=== PATIENT | male | born 1965 | race Caucasian/White ===

== ENCOUNTER 2018-08-31 07:22 | Emergency (ER) | payer BC, OTHER ==
[~2018-08-31] VITALS: Ht 175.3 cm; Wt 104.3 kg
[~2018-08-31 07:22] MED LIST: CLIN150C14 PO; CLIN300C8 PO; OXYC-323 PO
[2018-08-31 08:22] VITALS: BP 135/60
--- NOTE | 2018-08-31 08:44 | PHYS DOC ---
Past Medical History Past Medical History: Anxiety, Depression, Diabetes-Type II, High Cholesterol, Hypertension, Other Additional Past Medical Histor: neurofibromytosis, scoliosis Past Surgical History: Appendectomy, Other Additional Past Surgical Histo: tracheostomy, L 3rd finger Alcohol Use: None Drug Use: None Adult General Chief Complaint Chief Complaint: LOWER EXT PAIN HPI HPI Patient is a 53 year old male with a history of diabetes type 2, hypertension, high cholesterol, anxiety, currently with a tracheostomy, who presents today complaining of 9 out of 10 right medial knee pain described as sharp that has been going on for the last couple months. Patient states the pain is worse on weight bearing. Patient states the pain is relieved when he puts pressure on the pain area. He states he has been following up with his own doctor, he states they've given him hydrocodone as well as done joint injections with no relief. He is requesting x-rays. Patient denies any trauma. Review of Systems Review of Systems Constitutional: Denies fever or chills [] Musculoskeletal: Reports right knee pain chronic Integument: Denies rash or skin lesions [] Neurologic: Denies headache, focal weakness or sensory changes [] All other systems were reviewed and found to be within normal limits, except as documented in this note. Allergies Allergies Allergies Coded Allergies Type Severity Reaction Last Updated Verified cephalexin Allergy Intermediate "I break out" 06/20/16 Yes sulfamethoxazole Allergy Intermediate "i break out" 06/20/16 Yes trimethoprim Allergy Intermediate "i break out" 06/20/16 Yes Physical Exam Physical Exam Constitutional: Well developed, well nourished, no acute distress, non-toxic appearance. [] Skin: Warm, dry, no erythema, no rash. [] Back: No tenderness, no CVA tenderness. [] Extremities: Right knee with no obvious deformity. No tenderness on exam. Full active as well as passive range of motion to the right knee. +2 right pedal pulse. Cap refill less than 2 seconds the right lower extremity. Neurologic: Alert and oriented X 3, normal motor function, normal sensory function, no focal deficits noted. [] Psychologic: Affect normal, judgement normal, mood normal. [] Current Patient Data Vital Signs Vital Signs Date Time Temp Pulse Resp B/P (MAP) Pulse Ox O2 Delivery O2 Flow Rate FiO2 08/31/18 08:22 98.9 78 14 135/60 (85) 96 Room Air 98.9 EKG EKG [] Radiology/Procedures Radiology/Procedures [] Course & Med Decision Making Course & Med Decision Making Pertinent Labs and Imaging studies reviewed. (See chart for details) This is a 53-year-old male patient presenting to the ED today with chronic right knee pain, no known injury, patient is requesting x-rays. Right knee xrays interpreted by Dr. Echevarria are negative for any acute findings noted for DJD. Ktracs shows patient received 30 days supply of [place] 08/01/2018. Instructed to continue following up with his doctor. D/C with Voltaren cream. Ice and elevation encouraged. Staff Physician Addendum: I was working in the ER during the course of this patient's visit. I was available for consultation as needed, but I was not directly involved in the care of this patient. Dragon Disclaimer Dragon Disclaimer This electronic medical record was generated, in whole or in part, using a voice recognition dictation system. Departure Departure Impression: Primary Impression: Chronic pain of right knee Additional Impression: Right knee DJD Disposition: 01 HOME, SELF-CARE Condition: STABLE Referrals: UNKNOWN PCP NAME (PCP) CHATO LARA II, MD follow up in one week with your doctor or the provided doctor Patient Instructions: Arthritis, Degenerative-Brief, Knee Pain, [id number] Additional Instructions: You were seen for chronic right knee pain. Please continue taking hydrocodone at home. Use the cream provided on your knee as needed for pain. Follow up with your doctor as soon as you can. Scripts Diclofenac Sodium (VOLTAREN) 100 Gm Gel..gram. 1 GM TP QID, #100 GM 2 Refills Prov: TITO GAINES APRN 08/31/18 Problem Qualifiers Additional Impression: Right knee DJD Osteoarthritis type: unspecified Qualified Codes: M17.11 - Unilateral primary osteoarthritis, right knee TITO GAINES APRN Aug 31, 2018 08:44 JUAN ECHEVARRIA MD Aug 31, 2018 11:55
[2018-08-31] MEDS ORDERED: DICL100G18 TP (09:45)
--- NOTE | 2018-08-31 10:04 | RAD ---
KNEE RIGHT 4V Clinical Indication: CHRONIC RIGHT KNEE PAIN X2 WEEKS. PT STATES HAVING INCREASED BURNING FEELING SINCE YESTERDAY 08/30/2018. Comparison: None. Findings: Tricompartmental marginal osteophytes. There is patella fidencio. No acute fracture. No joint effusion. There is prepatellar subcutaneous edema. Minimal medial compartment narrowing. There is severe lateral patellofemoral joint space narrowing and large patellar osteophyte. Mineralization is normal. IMPRESSION: 1. No acute fracture. 2. Severe lateral patellofemoral degenerative arthropathy. Electronically signed by: Kwasi Esposito MD (08/31/2018 10:01 AM) [id number]
== END 2018-08-31 10:02 | disposition home or self-care (01) ==
LOC: ER 07:22
DX: M17.11 Unilateral primary osteoarthritis, right knee (principal); G89.29 Other chronic pain; E78.00 Pure hypercholesterolemia, unspecified; E11.9 Type 2 diabetes mellitus without complications; I10 Essential (primary) hypertension; Z88.1 Allergy status to other antibiotic agents; Z88.2 Allergy status to sulfonamides; Z88.8 Allergy status to other drugs, medicaments and biological substances
CPT/HCPCS: 73564; 99284